=== PATIENT | female | born 1960 | race Caucasian/White ===

== ENCOUNTER 2019-08-02 10:31 | Emergency (ER) | payer BC ==
[2019-08-02 11:12] VITALS: BP 130/73
--- NOTE | 2019-08-02 11:21 | UC ---
Lower Extremity/Ankle HPI - HPI Summary HPI Summary: Patient is a 58yo female with mixed connective tissue disorder presenting with left foot pain after she "rolled" her foot last night on her evening walk. Patient states her pain is worse with ambulating and pressure. Staets it "feels like there is a rock in her foot." Denies numbness and tingling. Denies ankle pain. Patient iced and took ibuprofen for pain relief. 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 - History of Current Complaint Chief Complaint: UCLowerExtremity Stated Complaint: LEFT FOOT INJURY Hx Obtained From: Patient Onset/Duration: Sudden Onset Pain Intensity: 0 - Allergies/Home Medications Allergies/Adverse Reactions: Allergies Allergy/AdvReac Type Severity Reaction Status Date / Time No Known Allergies Allergy Verified 08/02/19 11:04 Home Medications: Home Medications Atenolol TAB* [Tenormin TAB* 25 MG] mg PO DAILY 08/02/19 [History] Folic Acid TAB* [Folvite TAB*] 1 mg PO DAILY 08/02/19 [History Confirmed ] Hydroxychloroquine TAB* [Plaquenil TAB*] 200 mg PO DAILY 08/02/19 [History Confirmed 08/02/19] Ibuprofen TAB* [Advil TAB*] 400 mg PO Q6H PRN 08/02/19 [History Confirmed ] Lisinopril TAB* [Prinivil TAB*] mg PO DAILY 08/02/19 [History] Methotrexate TAB* 10 mg PO WE 08/02/19 [History Confirmed 08/02/19] amLODIPine TAB* [Norvasc 5 mg TAB*] mg PO DAILY 08/02/19 [History] PMH/Surg Hx/FS Hx/Imm Hx Cardiovascular History: Hypertension - Surgical History Surgical History: Yes Surgery Procedure, Year, and Place: D&C, 2016, [place]; D&C, 2013, [place]; Left Inguinal Herniorrhaphy, ~, [place] - Family History Known Family History: Positive: Non-Contributory - Social History Alcohol Use: Weekly Substance Use Type: None Smoking Status (MU): Never Smoked Tobacco Review of Systems All Other Systems Reviewed And Are Negative: No Constitutional: Positive: Negative Respiratory: Positive: Negative. Negative: Shortness Of Breath Cardiovascular: Positive: Negative. Negative: Palpitations, Chest Pain Gastrointestinal: Positive: Negative Musculoskeletal: Positive: Arthralgia, Edema. Negative: Myalgia Neurological: Negative: Weakness, Paresthesia, Numbness Physical Exam Triage Information Reviewed: Yes Appearance: Well-Appearing, No Pain Distress, Well-Nourished Vital Signs: Initial Vital Signs Temp 98.1 F 08/02/19 11:02 Pulse 70 08/02/19 11:02 Resp 16 08/02/19 11:02 BP 130/73 08/02/19 11:02 Pulse Ox 100 08/02/19 11:02 Vital Signs Reviewed: Yes Eyes: Positive: Conjunctiva Clear ENT: Positive: Hearing grossly normal Neck: Positive: Supple Respiratory: Positive: No respiratory distress Cardiovascular: Positive: Pulses Normal, Brisk Capillary Refill Musculoskeletal Exam: Normal Musculoskeletal: Positive: Strength Intact, ROM Intact, Edema @ - left lateral foot Neurological: Positive: Alert Psychological: Positive: Age Appropriate Behavior Skin Exam: Normal, Other - no ecchymosis noted Lower Extremity Course/Dx - Course Course Of Treatment: Discussed fifth metatarsal fracture with patient. Instructed her to wear postop shoe and use crutches. I emphasized importance of nonweightbearing on the left foot. Instructed to continue ice and elevation. Directed her to follow up with podiatry as soon as possible for further evaluation and treatment. Patient voiced understanding and agreed with the treatment plan. - Differential Dx/Diagnosis Provider Diagnosis: Fracture of fifth metatarsal bone of left foot Discharge ED - Sign-Out/Discharge Documenting (check all that apply): Patient Departure All imaging exams completed and their final reports reviewed: Yes - Discharge Plan Condition: Stable Disposition: HOME Patient Education Materials: Foot Fracture in Adults (ED) Referrals: Glenn STOKES,Major Matthews [Doctor of Podiatric Medicine] - As Soon As Possible Additional Instructions: As discussed, your xrays did show a fracture of your fifth metatarsal. It is important that you wear the post op shoe and use the crutches until you are able to follow up. Do not bear weight on that foot. You may continue with ice and elevation. You may continue to take over the counter pain medications as directed. Follow up with podiatry listed below as soon as possible. Go to the ED if the foot becomes cold, numb, or you experience severe pain. - Billing Disposition and Condition Condition: STABLE Disposition: Home
== END 2019-08-02 12:10 | disposition home or self-care (01) ==
LOC: UCCORT 10:31
DX: S92.352A Displaced fracture of fifth metatarsal bone, left foot, initial encounter for closed fracture (principal); I10 Essential (primary) hypertension; X50.9XXA Other and unspecified overexertion or strenuous movements or postures, initial encounter; Y93.01 Activity, walking, marching and hiking; Y92.9 Unspecified place or not applicable; Z79.899 Other long term (current) drug therapy
CPT/HCPCS: 99213; G0463